=== PATIENT | male | born 1965 | race Caucasian/White ===

== ENCOUNTER 2019-07-23 08:00 | Day surgery (SDC) | payer OTHER, SELFPAY ==
--- NOTE | 2019-07-16 02:59 | HP_ITS ---
Intake Vital Signs 07/16/19 Height 5 ft 11 in 07/16/19 Weight: 165 lb 1 oz 07/16/19 BMI 23.0 07/16/19 BP 128/70 H 07/16/19 Blood Pressure Location Rt brachial 07/16/19 Position Sitting 07/16/19 Respiration 16 07/16/19 Pulse 68 07/16/19 Temp 97.9 F 07/16/19 Temp Source Temporal 07/16/19 Pulse Oximetry (%) 100 Intake Visit Reasons: Hernia Chief Complaint: left inguinal hernia Pm Technician Required: No Is patient in pain?: No Allergies No Known Allergies Allergy (Verified 07/16/19 13:43) Medications NK 07/16/19 [History Confirmed 07/16/19] [facility] Medical History (Updated 07/16/19 @ 14:[address] Greg Mendoza MD) Left inguinal hernia (Acute) Left inguinal hernia (Acute) Surgical History (Updated 07/16/19 @ 13:42 by Maria Luisa Reid) Status post lateral meniscectomy of right knee (Acute ~2009) Family History (Updated 07/16/19 @ 13:42 by Maria Luisa Reid) Father No problems noted. Social History (Updated 07/16/19 @ 15:[address] Greg Mendoza MD) Smoking Status: Never smoker HPI HPI HPI: ANUM SANDRA, is a 53 M who presents to the office today for HPI HPI Surgical H&P: Yes HPI: ANUM SANDRA, is a 53 M who presents to the office today for surgical consultation regarding a left inguinal hernia. Very pleasant and jocular [age]-year-old gentleman. Cousin is Justino Casey. The patient is very physically active. Some of his work can be physical. He enjoys multiple sports. He is involved in multiple activities for physical health including activities like P90 X. After a weightlifting set he has 2 reduce the right testicle. Within the past month or so he is noticed a bulge in the left groin with some pain. He is frequently had left hip pain which he attributed to his hip but now thinks maybe it was this bulge and hernia. ROS General General: No weight change, appetite, fatigue, colon cancer, breast cancer or weakness HEENT HEENT: No difficulty swallowing, eye injury, eye surgery, swollen glands or hoarseness Endo Endocrine: No thyroid disease, diabetes mellitus, thyroid cancer, Hair loss, heat intolerance or cold intolerance Musc Musculoskeletal: No back problems, arthritis, rheumatoid arthritis, gout or joint pain Cardio Cardiovascular: No murmur, pacemaker, heart disease, atrial fibrillation, high blood pressure, heart attack, heart stent, palpitations, shortness of breat with exertion or chest pain Psych Psychiatric: No depression, anxiety or hearing voices Resp Respiratory: No shortness of breath, No sleep apnea, No cough, No COPD, No asthma, No emphysema, No wheezing Gastro Gastrointestinal: Yes abdominal pain, No nausea or vomiting, No diarrhea, No constipation, No blood in stool, No acid reflux, No hemorrhoids, No ulcers, No gallbladder problem, No black,tarry stools Luis Hematologic: No blood thinners, No blood disorders, No bleeding, No anemia, No blood clots Neuro Neurologic: No weakness Exam Const General: cooperative, healthy appearing, comfortable, no acute distress Nutritional Appearance: average body habitus Orientation: alert, awake HENMT Head: normal to inspection Resp Effort & Inspection: normal respiratory effort Cardio Rate: regular rate Rhythm: regular rhythm Heart Sounds: no murmurs GI Palpation: soft, no hepatosplenomegaly Other: Retractile right testicle. I do not detect a distinct hernia. Left testicle without mass. Indirect left inguinal hernia. Reducible Musc Cervical Spine: normal cervical lordosis Neuro General: alert, awake Extrem General: no calf tenderness Psych Affect: normal affect Assessment & Plan Problems 1. Left inguinal hernia K40.90 Plan Symptomatic reducible left inguinal hernia. In detail I have discussed with him recommendations for a laparoscopic left inguinal hernia repair with mesh. I discussed the technique, benefit, risk of alternatives. No guarantees of success have been offered. The patient is aware that a time to recuperate will be mandatory. He is considering 2 weeks off of work. He is aware that there will be a lift weight lifting restriction. He is aware that there are no guarantees of success. We also discussed possible neuralgia. In addition because of this unusual need to relax the right groin area we will take a careful inspection there. If perhaps a right inguinal hernia is detected at the time of laparoscopy then the patient has given instructions to proceed with a laparoscopic right inguinal hernia repair as well. He has had an opportunity ask and have questions answered. It is of note that the patient has never had a colonoscopy. We did take the opportunity today to talk to him about recommendations to proceed with scheduling for a colonoscopy. I also discussed the technique benefit risk complications and alternatives. The patient does not desire to schedule at this time. The patient states that he is generally very healthy. He does not have a primary care physician. Greg Mendoza M.D., F.A.C.S. Coding Level of Care Code Off vis,new,level 3 Diagnoses Left inguinal hernia K40.90 Time Spent (min) 35 07/16/19 1500 <Electronically signed by Greg foreman MD> Date _ Greg Mendoza MD
[2019-07-16 13:42] VITALS: BMI 23.0
--- NOTE | 2019-07-22 09:46 | EKG12_ITS ---
Test Reason : PRE-OP Blood Pressure : / mmHG Vent. Rate : 070 BPM Atrial Rate : 070 BPM P-R Int : 162 ms QRS Dur : 100 ms QT Int : 380 ms P-R-T Axes : 058 013 018 degrees QTc Int : 410 ms Normal sinus rhythm with sinus arrhythmia Incomplete right bundle branch block Nonspecific T wave abnormality Abnormal ECG Confirmed by FAUSTO GROSS, SHELIA ([id number]), editor school photograph NAYELY HAYNES ([id number]) on 07/23/2019 9:15:38 AM Referred By: Greg Mendoza Confirmed By:SHELIA LAMBERT MD
[2019-07-22 10:19] LABS: Hemoglobin 14.8 g/dL (13.0-16.5); Mean Corp Hgb Conc 32.9 g/dL (32-36); Mean Corpuscular Hgb 29.6 pg (27.0-32.0); Mean Platelet Vol. 11.1 fl (6.2-12.0); Platelet Count 214 K/mm3 (150-450); RBC Distribution Width CV 13.1 % (11.6-14.6); RBC Distribution Width SD 42.6 fl (35.1-43.9)
[2019-07-22 10:44] LABS: Anion Gap 5 (5-15); BUN 12 mg/dL (7-18); BUN/Creat Ratio 11.1 RATIO (10-20); Chloride 107 mmol/L (98-107); Creatinine, Serum 1.08 mg/dL (0.70-1.30); EST Glomerular Filtration Rate 76 mL/min (>60); Est Glom Filt Rate - Afr Amer 92 mL/min (>60); Glucose 109 mg/dL (74-106); Sodium Level 142 mmol/L (136-145)
[2019-07-22 14:33] LABS: Probe Check PASS; Specimen Processing Control PASS
[2019-07-23] VITALS (9 sets, daily range): BP systolic 108–139; BP diastolic 63–93; PULSE 66–80; RESP 15–18; TEMP 36.1–37; O2SAT 97–100; BMI 23.1
--- NOTE | 2019-07-23 | HERN_PTH ---
PATIENT: DAVID SANDRA LOC: [facility] [place] U#:[id number] AGE/SX: 53/M ROOM: RE07/23/[address]: Dr. Greg Mendoza MD : 1965 BED: DIS: 07/23/2019 SPEC #: [id number] RECD: 07/23/19 13:00 STATUS: OMAR MANUEL #: [id number] RADHA: 07/23/19 00:[address]: Greg Mendoza DEPT: SURGICAL PATHOLOGY RECD BY: Abimael Melton ENTERED: 07/23/19 13:00 SP TYPE: Hernia OTHR DR: No Primary Care Phys Tissues: HERNIA Procedures: Surgery Specimen Level II HEADER OPERATION: Laparoscopic inguinal hernia repair PRE-OP DIAGNOSIS: Hernia TISSUE SUBMITTED: Umbilical hernia contents MICROSCOPIC DIAGNOSIS Umbilical hernia contents: A piece of mature adipose tissue, clinically hernia contents. SJ:marilu 07/26/19 MICROSCOPIC DESCRIPTION Slides are reviewed. GROSS DESCRIPTION Received in fixative is one container labeled with the patient's name and designated umbilical hernia contents. The specimen consists of a piece of yellow adipose tissue measuring 3 x 2.5 x 1 cm. Sections do not reveal any mass lesion. Engine Generator Assembler sections are submitted in one cassette. / SJ:marilu 07/23/19 TC:5 CPT: 28345
[2019-07-23] MEDS: Lactated Ringers 1,000 ML 100 ML IV ×2 (08:40→16:03)
--- NOTE | 2019-07-23 09:00 | HP.PCM_ITS ---
Problem List (1) Left inguinal hernia Status: Acute History and Physical Date of Admission: 07/23/19 Intake Visit Reasons: Hernia Chief Complaint: left inguinal hernia Vine Pruner Required: No Is patient in pain?: No Allergies No Known Allergies Allergy (Verified 07/16/19 13:43) Medications NK 07/16/19 [History Confirmed 07/16/19] [facility] Medical History (Updated 07/16/19 @ 14:[address] Greg Mendoza MD) Left inguinal hernia (Acute) Left inguinal hernia (Acute) Surgical History (Updated 07/16/19 @ 13:42 by Maria Luisa Reid) Status post lateral meniscectomy of right knee (Acute ~2009) Family History (Updated 07/16/19 @ 13:42 by Maria Luisa Reid) Father No problems noted. Social History (Updated 07/16/19 @ 15:[address] Greg Mendoza MD) Smoking Status: Never smoker HPI HPI HPI: ANUM SANDRA, is a 53 M who presents to the office today for HPI HPI Surgical H&P: Yes HPI: ANUM SANDRA, is a 53 M who presents to the office today for surgical consultation regarding a left inguinal hernia. Very pleasant and jocular [age]-year-old gentleman. Cousin is Justino Casey. The patient is very physically active. Some of his work can be physical. He enjoys multiple sports. He is involved in multiple activities for physical health including activities like P90 X. After a weightlifting set he has 2 reduce the right testicle. Within the past month or so he is noticed a bulge in the left groin with some pain. He is frequently had left hip pain which he attributed to his hip but now thinks maybe it was this bulge and hernia. ROS General General: No weight change, appetite, fatigue, colon cancer, breast cancer or weakness HEENT HEENT: No difficulty swallowing, eye injury, eye surgery, swollen glands or hoarseness Endo Endocrine: No thyroid disease, diabetes mellitus, thyroid cancer, Hair loss, heat intolerance or cold intolerance Musc Musculoskeletal: No back problems, arthritis, rheumatoid arthritis, gout or joint pain Cardio Cardiovascular: No murmur, pacemaker, heart disease, atrial fibrillation, high blood pressure, heart attack, heart stent, palpitations, shortness of breat with exertion or chest pain Psych Psychiatric: No depression, anxiety or hearing voices Resp Respiratory: No shortness of breath, No sleep apnea, No cough, No COPD, No asthma, No emphysema, No wheezing Gastro Gastrointestinal: Yes abdominal pain, No nausea or vomiting, No diarrhea, No constipation, No blood in stool, No acid reflux, No hemorrhoids, No ulcers, No gallbladder problem, No black,tarry stools Luis Hematologic: No blood thinners, No blood disorders, No bleeding, No anemia, No blood clots Neuro Neurologic: No weakness Exam Const General: cooperative, healthy appearing, comfortable, no acute distress Nutritional Appearance: average body habitus Orientation: alert, awake HENGA Head: normal to inspection Resp Effort & Inspection: normal respiratory effort Cardio Rate: regular rate Rhythm: regular rhythm Heart Sounds: no murmurs GI Palpation: soft, no hepatosplenomegaly Other: Retractile right testicle. I do not detect a distinct hernia. Left testicle without mass. Indirect left inguinal hernia. Reducible Musc Cervical Spine: normal cervical lordosis Neuro General: alert, awake Extrem General: no calf tenderness Psych Affect: normal affect Assessment & Plan Problems 1. Left inguinal hernia K40.90 Plan Symptomatic reducible left inguinal hernia. In detail I have discussed with him recommendations for a laparoscopic left inguinal hernia repair with mesh. I discussed the technique, benefit, risk of alternatives. No guarantees of success have been offered. The patient is aware that a time to recuperate will be mandatory. He is considering 2 weeks off of work. He is aware that there will be a lift weight lifting restriction. He is aware that there are no guarantees of success. We also discussed possible neuralgia. In addition because of this unusual need to relax the right groin area we will take a careful inspection there. If perhaps a right inguinal hernia is detected at the time of laparoscopy then the patient has given instructions to proceed with a laparoscopic right inguinal hernia repair as well. He has had an opportunity ask and have questions answered. It is of note that the patient has never had a colonoscopy. We did take the opportunity today to talk to him about recommendations to proceed with scheduling for a colonoscopy. I also discussed the technique benefit risk complications and alternatives. The patient does not desire to schedule at this time. The patient states that he is generally very healthy. He does not have a primary care physician. Greg Mendoza M.D., F.A.C.S. Coding Level of Care Code Off vis,new,level 3 Diagnoses Left inguinal hernia K40.90 Time Spent (min) 35 07/16/19 1500 <Electronically signed by Greg foreman MD> Date _ Greg Mendoza MD I have re-examined the patient. There are no clinical changes since date of exam. Procedure Criteria Procedure Type: Elective COVID Risk Discussion: The surgeon/proceduralist and patient have discussed in detail the risk of exp osure to and/or potential harm posed by the COVID-19 virus with having a surgery/procedure at this time versus the risk of delaying the surgery/procedure. It is not possible to know either the risk of delaying the surgery or procedure or chance of getting an infection with perfect accuracy, but a joint decision was made between the patient and the surgeon/proceduralist to proceed at this time with the scheduled surgery/procedure as indicated on the consent form.
--- NOTE | 2019-07-23 10:40 | PCM.DC.GS ---
Discharge Diet: Light diet - advance as tolerated - if you have questions about your diet instructions, please talk to you doctor. Discharge Activity: May Not Drive - for 3-5 days or while taking narcotic pain medicine. May shower in (days): 1 Lifting Restrictions: 10 pounds Call your doctor if your incision/area has: Continuous Slow Oozing, Sudden Increased Bleeding, Increased Pain/ Swelling, Increased Redness, Foul Smelling Discharge Call your doctor if you observe: Fever of 101 or Higher Suture Line Care: Avoid Pulling/Pushing, Avoid Pinching/Bending Additional Dressing/Incision Instructions:: Change or remove dressing in 4 days. Leave steri-strips in place for 1 week. Allergies/Adverse Reactions: Allergies No Known Allergies Allergy (Verified 07/23/19 08:22) Medications to take at Discharge Hydrocodone Bitart/Apap 5-325 [[place] 5MG-325MG] 1 tablet PO Q6H PRN PRN 2 Days #5 tablet 07/23/19 The following prescriptions were given: Hydrocodone Bitart/Apap 5-325 [[place] 5MG-325MG] 1 tablet PO Q6H PRN PRN 2 Days #5 tablet PRN Reason: Pain Transmission Status: Received by [facility]/pharmacy #[id number] Primary Care Physician: Care Physician,No Primary [Primary Care Provider] - Test Results: Test results from this visit will be discussed in further detail at your follow-up appointment, if applicable. Please Follow Up With: Greg Mendoza MD - [phone] When: Call to make an appointment to be seen in about 10 days. Virtual?
[2019-07-23] MEDS: Cefazolin 2 GM in 0.9% Normal Saline 100 ML IV (10:43)
[2019-07-23] MEDS: Bupivacaine Mpf 0.5% 30 ML VIAL (11:40)
--- NOTE | 2019-07-23 11:46 | PCM.OPRPT ---
Problem List (1) Left inguinal hernia Status: Acute Report of Operation Date of Procedure: 07/23/19 Pre-Operative Diagnosis: Symptomatic left inguinal hernia Post-Operative Diagnosis: Umbilical hernia and symptomatic indirect left inguinal hernia Surgery/Procedure Performed:: Laparoscopic left inguinal herniorrhaphy. Bard 3D max large left Lot number [id number]. Reference #[id number]. Expiry date 11/15/2023. Secure strap lot number: [id number], expiry date 1221. Umbilical herniorrhaphy Description of Surgical Findings:: Timeout and informed consent was obtained. 53-year-old gentleman was taken out from placement table underwent general endotracheal intubation anesthesia. Ancef 2 g given intravenously preoperatively. The abdomen sterilely prepped and draped. A curvilinear incision was made in the inferior portion of the umbilicus. Sharp and blunt dissection was used to identify a umbilical hernia. There was preperitoneal fatty tissue within it. This was dissected free and the specimen was submitted. Holding sutures of 0 Vicryl placed. Varies needle inserted. Saline drop test performed. The abdomen was insufflated with CO2 to a pressure of 10 mmHg pressure. Kendra trocar inserted. Temporary laparoscope inserted. No ventral trocar injuries. Under direct visualization 5 mm ports were placed in the right and left lower quadrants. A left ileal inguinal nerve block was performed with 0.5% Marcaine. Throughout the procedure total 30 cc of Marcaine was used. The peritoneum superior and lateral to the internal ring was incised carried medially. The peritoneum was then completely generously dissected free until the direct space indirect space and femoral area was identified. A Bard large 3D max mesh was placed those to cover the defect area. It very nicely set in position. It was secured superiorly and medially with secure strap. The mesh was in excellent position. The peritoneum was approximated to itself with hemo-lock clips. The right groin was inspected and there was absolutely no evidence of any hernia. The abdomen was allowed to deflate of the CO2 through an antiviral valve. The fascia at the umbilicus was approximated with simple sutures of 0 Nurolon transversely so as to approximate that umbilical hernia. Good repair was achieved. Skin edges were approximate interrupted 4 Monocryl subdermal stitches. Steri-Strips Telfa OpSite dressings applied. Sponge and instrument and needle counts were reported to the surgeon to be correct. Specimens umbilical hernia contents. Drains none. Blood loss minimal. Greg Mendoza M.D., F.A.C.S. Type of Anesthesia:: General Anesthesiologist: Mateo Pagan
[2019-07-23] MEDS: Tamsulosin HCl 0.4 MG Capsule PO (17:55)
== END 2019-07-23 18:45 | disposition home or self-care (01) ==
LOC: SDC 08:00 → AC 08:01
PROVIDERS: Physician Assistant; Referring Provider Surgery; Visit Provider Surgery
PROC: (CPT 49650; principal; 2019-07-23 10:10)
DX: K40.90 Unilateral inguinal hernia, without obstruction or gangrene, not specified as recurrent (principal); Z11.59 Encounter for screening for other viral diseases
CPT/HCPCS: 49650; 36415; 80048; 85027; 87635; 88302; 93005; G2023; J7120; C1781; J2405; U0003